=== PATIENT | male | born 1985 | race Caucasian/White ===

== ENCOUNTER 2020-11-28 20:41 | Emergency (ER) | payer OTHER, SELFPAY ==
[2020-11-28] MEDS ORDERED: Lidocaine 1% PF 5 ML VIAL ONE ×2 (20:58→21:00)
[2020-11-28] MEDS ORDERED: Boostrix 0.5 ML (Tdap) VIAL ONE (21:38)
[2020-11-28] MEDS ORDERED: Bacitracin 1 PK ONE (21:38)
== END 2020-11-28 21:48 | disposition home or self-care (01) ==
LOC: BURERS 20:41
DX: S51.812A Laceration without foreign body of left forearm, initial encounter (principal); W22.8XXA Striking against or struck by other objects, initial encounter; F17.290 Nicotine dependence, other tobacco product, uncomplicated
CPT/HCPCS: 12002; 90471; 90715